=== PATIENT | male | born 1980 | race Hispanic/Latino ===

== ENCOUNTER 2021-07-10 07:58 | Outpatient (CLI) | payer BC ==
[2021-07-10 17:33] LABS: SARS-CoV-2 PCR by NAA Not Detected (NotDetected)
== END 2021-07-10 07:59 | disposition home or self-care (01) ==
LOC: CSHLAB 07:58
PROVIDERS: ATTEND Internal Medicine Pulmonary Disease
DX: Z20.822 Contact with and (suspected) exposure to COVID-19 (principal)
CPT/HCPCS: U0003; U0005

== ENCOUNTER 2021-07-15 09:42 | Outpatient (CLI) | payer BC | END 2021-07-15 09:43 | disposition home or self-care (01) | LOC: CSHCP 09:42 | PROVIDERS: ATTEND Internal Medicine Pulmonary Disease | DX: U07.1 COVID-19 (principal); J18.9 Pneumonia, unspecified organism; U09.9 Post COVID-19 condition, unspecified; R94.2 Abnormal results of pulmonary function studies | CPT/HCPCS: 71250; 94010; 94726; 94729; 94760 ==